=== PATIENT | female | born 1975 | race Caucasian/White ===

== ENCOUNTER → 2017-06-04 | Outpatient (CLI) | payer BC | LOC: MC.RAD 08:16 | DX: Z12.31 Encounter for screening mammogram for malignant neoplasm of breast (principal); R92.8 Other abnormal and inconclusive findings on diagnostic imaging of breast ==

== ENCOUNTER → 2017-06-07 | Outpatient (CLI) | payer BC | LOC: MC.RAD 13:00 | DX: N64.89 Other specified disorders of breast (principal) ==

== ENCOUNTER → 2017-06-12 | Outpatient (CLI) | payer BC | LOC: MC.RAD 08:17 | DX: N63.10 Unspecified lump in the right breast, unspecified quadrant (principal); N64.89 Other specified disorders of breast ==

== ENCOUNTER → 2018-06-13 | Outpatient (CLI) | payer BC | LOC: MC.RAD 07:16 | DX: Z12.31 Encounter for screening mammogram for malignant neoplasm of breast (principal); Z98.82 Breast implant status; N64.89 Other specified disorders of breast ==

== ENCOUNTER → 2020-06-23 | Outpatient (CLI) | payer OTHER | LOC: MC.RAD 06-09 08:15 | DX: Z12.31 Encounter for screening mammogram for malignant neoplasm of breast (principal) ==

== ENCOUNTER → 2021-08-25 | Outpatient (CLI) | payer OTHER | LOC: MC.RAD 07:08 | DX: Z12.31 Encounter for screening mammogram for malignant neoplasm of breast (principal) ==

== ENCOUNTER → 2023-12-11 | Outpatient (CLI) | payer OTHER | LOC: MC.RAD 10:16 | DX: Z12.31 Encounter for screening mammogram for malignant neoplasm of breast (principal) ==